=== PATIENT | female | born 1980 | race Caucasian/White ===

== ENCOUNTER 2016-12-19 10:46 | Emergency (ER) | payer MEDICAID ==
[2016-12-19] MEDS ORDERED: ONDANSETRON ODT 4 MG TAB ONE (11:16)
[2016-12-19] MEDS ORDERED: MORPHINE 4 MG/ML SYR ONE (11:16)
[2016-12-19] MEDS ORDERED: DILAUDID 1 MG/ML AMP ONE (14:55)
== END 2016-12-19 15:31 | disposition home or self-care (01) ==
LOC: ER 10:46
DX: S06.9X9A Unspecified intracranial injury with loss of consciousness of unspecified duration, initial encounter (principal); S16.1XXA Strain of muscle, fascia and tendon at neck level, initial encounter; S29.012A Strain of muscle and tendon of back wall of thorax, initial encounter; S00.03XA Contusion of scalp, initial encounter; S20.211A Contusion of right front wall of thorax, initial encounter; S60.211A Contusion of right wrist, initial encounter; S90.01XA Contusion of right ankle, initial encounter; S90.31XA Contusion of right foot, initial encounter; W18.2XXA Fall in (into) shower or empty bathtub, initial encounter; Y93.E1 Activity, personal bathing and showering; Y92.012 Bathroom of single-family (private) house as the place of occurrence of the external cause; M47.892 Other spondylosis, cervical region; F17.200 Nicotine dependence, unspecified, uncomplicated; I10 Essential (primary) hypertension
CPT/HCPCS: 70450; 72072; 72125; 96372

== ENCOUNTER 2016-12-25 23:28 | Emergency (ER) | payer MEDICAID | END 2016-12-26 01:32 | disposition left against medical advice (07) | LOC: ER 23:28 | DX: Z53.21 Procedure and treatment not carried out due to patient leaving prior to being seen by health care provider (principal) ==